=== PATIENT | female | born 1960 | race Caucasian/White ===

== ENCOUNTER 2019-08-10 13:25 | Emergency (ER) | payer MEDICAID, OTHER ==
[~2019-08-10] VITALS: Ht 167.6 cm; Wt 58.2 kg
[2019-08-10 14:55] LABS: BASOPHILS # (AUTO) 0.02 x10^3/uL (0-0.1); BASOPHILS % (AUTO) 0 % (0-1); EOSINOPHILS # (AUTO) 0.05 x10^3/uL (0-0.4); EOSINOPHILS % (AUTO) 1 % (1-7); LYMPHOCYTES # (AUTO) 2.37 x10^3/uL (1-3.4); LYMPHOCYTES % (AUTO) 36 % (22-44); MD NO; MEAN CORPUSCULAR HEMOGLOBIN 33.5 pg (27.0-34.8); MEAN CORPUSCULAR HGB CONC 33.5 g/dL (32.4-35.8); MEAN CORPUSCULAR VOLUME 99.9 fL (80-100); MEAN PLATELET VOLUME 8.7 fL (7.4-10.4); MONOCYTES # (AUTO) 0.42 x10^3/uL (0.2-0.8); MONOCYTES % (AUTO) 6 % (2-9); NEUTROPHILS % (AUTO) 56 % (42-75); PLATELET COUNT 232 x10^3/uL (130-400); RED BLOOD COUNT 4.29 x10^6/uL (3.82-5.3); RED CELL DISTRIBUTION WIDTH 12.4 % (9.6-15.2)
[2019-08-10 15:06] LABS: ALANINE AMINOTRANSFERASE 39 U/L (12-78); ALBUMIN 3.9 g/dL (3.4-5.0); ANION GAP 7 mmol/L (5-15); CALCIUM 9.5 mg/dL (8.5-10.1); CHLORIDE 108 mmol/L (98-107); CREATININE 0.84 mg/dL (0.55-1.02)
[2019-08-10 15:08] LABS: ALKALINE PHOSPHATASE 71 U/L (45-117); BILIRUBIN,TOTAL 0.5 mg/dL (0.2-1.0); TOTAL PROTEIN 7.5 g/dL (6.4-8.2)
--- NOTE | 2019-08-10 15:16 | NUR ---
URINE SAMPLE WALKED TO LAB
[2019-08-10 15:40] LABS: MICROSCOPIC AUTO
[2019-08-10 15:47] VITALS: BP 136/79
--- NOTE | 2019-08-10 15:48 | NUR ---
PT RESTING IN GURNEY, DECLINING BLANKET. REQUESTING TO BE OFF MONITOR. PT EDUCATED ON NECESSITY OF MONITORING IN ED AND AGREES AT THIS TIME. CALL LIGHT WITHIN REACH
[2019-08-10] MEDS ORDERED: MAALOX/HYOSCYAMINE/LIDOCAINE 45 ML BTL PO ONE (16:00)
[2019-08-10] MEDS ORDERED: HYDROcodone/APAP 5/325 TABLET ONE (16:50)
[2019-08-10] MEDS ORDERED: MAALOX/HYOSCYAMINE/LIDOCAINE 45 ML BTL ONE (16:50)
[2019-08-10] MEDS ORDERED: HYDROcodone/APAP 5/325 TABLET PO PRN (17:00)
--- NOTE | 2019-08-10 17:19 | NUR ---
PT TO CHARGE DESK ASKING, "WHAT ARE WE DOING, DO I NEED TO WAIT HERE, I HAVE THINGS TO DO, YOU CAN CALL ME WITH THE RESULTS" PT EDUCATED AGAIN ON NEED TO WAIT FOR RESULTS OR GO TO OUTPATIENT CLINIC IF SHE WOULD LIKE OUTPATIENT NON-EMERGENT SERVICES, PT STATES "WELL I GUESS I'LL WAIT", PT STATES SHE IS IN PAIN AND MD NOTIFIED.
--- NOTE | 2019-08-10 17:45 | NUR ---
PT REFUSING MONITOR AT THIS TIME
== END 2019-08-10 18:14 | disposition home or self-care (01) ==
LOC: ED 15:22
DX: R10.12 Left upper quadrant pain (principal); R06.09 Other forms of dyspnea; R06.2 Wheezing; Z72.0 Tobacco use; Z90.710 Acquired absence of both cervix and uterus
CPT/HCPCS: 36415; 71046; 74176; 80053; 81001; 83690; 85025; 99285